=== PATIENT | male | born 1995 | race Caucasian/White ===

== ENCOUNTER 2019-10-11 20:14 | Emergency (ER) | payer OTHER ==
[~2019-10-11] VITALS: Ht 177.8 cm; Wt 57.6 kg
[2019-10-11 20:37] VITALS: BP 135/81
--- NOTE | 2019-10-11 21:00 | NUR ---
23 Y/O MALE PRESENTS TO ER WITH C/O LEFT EYE PAIN X 3 DAYS. 6/10 PAIN. PT STATES HE BELIEVES THIS IS DUE TO HAVING DIRTY CONTACT LENS WITH SLICE IN THE CENTER. PT ALSO STATED HE WENT TO [facility] @ 12 NOON TODAY, AND WAS GIVEN POLYMYXIN B SULFATE AND TRIMETHOPRIM GTTS WHICH HE INSTILLED IN EYE X 2HRS AGO. ALSO USED OTC HISTAMINE GTTS WELL. LEFT EYE IS NOTED TO HAVE SMALL WHITE PATCH IN IRIS AREA OF THE EYE, ALONG WITH WHITE DISCHARGE COMING FROM THE EYE. PT ALSO C/O HEADACHE, SENSITIVITY TO LIGHT, AND VISION CHANGES WITH DIMINISHED MIDLINE VISUAL ACUITY, AND BLURRY PERIPHERAL VISION. DENIES INJURY/TRAUMA TO FACE OR LEFT EYE. PT DENIES N/V/D, SOB, COUGH, FEVER, CHILLS. VSS, R/R EQUAL, AND UNLABORED. SIDE RAIL X1, BED IN LOW POSITION, WILL CONTINUE TO MONITOR. NKDA DENIES PMH
--- NOTE | 2019-10-11 21:09 | NUR ---
Dr. Schroeder examining patient.
[2019-10-11] MEDS ORDERED: TETRACAINE 1% 2 ML AMP INJ ONE (21:15)
[2019-10-11] MEDS ORDERED: FLUORESCEIN OPTH STRIP 1 MG ONE (21:15)
[2019-10-11] MEDS ORDERED: TETRACAINE HCL/PF 0.5% OPTH 4 ML BTL ONE (21:22)
[2019-10-11 21:45] VITALS: BP 135/81
--- NOTE | 2019-10-11 21:45 | NUR ---
Patient discharged with v/s stable. Written and verbal after care instructions given and explained. Patient alert, oriented and verbalized understanding of instructions. Ambulatory with steady gait. All questions addressed prior to discharge. ID band removed. Patient advised to follow up with PMD. Rx of CILOXAN OPTH GTTS given. Patient educated on indication of medication including possible reaction and side effects. Opportunity to ask questions provided and answered.
== END 2019-10-11 21:45 | disposition home or self-care (01) ==
LOC: MED 20:14
DX: S05.02XA Injury of conjunctiva and corneal abrasion without foreign body, left eye, initial encounter (principal); X58.XXXA Exposure to other specified factors, initial encounter; Y93.89 Activity, other specified; Y92.89 Other specified places as the place of occurrence of the external cause; Y99.8 Other external cause status
CPT/HCPCS: 99283; J3490

== ENCOUNTER 2019-10-12 09:10 | Emergency (ER) | payer OTHER ==
[~2019-10-12] VITALS: Ht 177.8 cm; Wt 59.0 kg
[2019-10-12 09:15] VITALS: BP 133/89
--- NOTE | 2019-10-12 09:19 | NUR ---
Patient being evaluated by DR SONI at bedside.
--- NOTE | 2019-10-12 09:21 | NUR ---
C/O LEFT EYE PAIN AFTER WEARING CONTACT LENSES X 3 DAYS. SEEN HERE LAST NIGHT FOR LEFT CORNEAL ABRASION.MED HX: DENIES. PATIENT STATES PAIN OF 3/10 AT THIS TIME.
[2019-10-12] MEDS ORDERED: TETRACAINE HCL/PF 0.5% OPTH 4 ML BTL OP ONE (09:25)
[2019-10-12] MEDS ORDERED: FLUORESCEIN OPTH STRIP 1 MG OP ONE (09:25)
--- NOTE | 2019-10-12 09:30 | NUR ---
[facility] WITHOUT CONTACT LENSES ; RIGHT EYE 20/100, LEFT NONE, BOTH EYES 20/100. Addendum: 10/12/19 at 0932 by [facility] ACCU CHECK 89
--- NOTE | 2019-10-12 09:58 | NUR ---
PT MEDS AT BEDSIDE DR SONI INFORMED AND AWARE.
--- NOTE | 2019-10-12 10:51 | NUR ---
DR SONI AT BEDSIDE EVALUATING PT.
--- NOTE | 2019-10-12 11:24 | NUR ---
SIGNED CONSENT FOR TRANSFER TO [facility] , [place] [facility] CALLED FOR TRANSPORT .
--- NOTE | 2019-10-12 11:41 | NUR ---
SPOKE TO LILIAN AT [facility] GAVE REPORT , PT V/S STABLE . ETA FOR TRANSPORT 1215.
--- NOTE | 2019-10-12 12:09 | NUR ---
GAVE REPORT TO JAVIER SOMMERS
[2019-10-12 12:10] VITALS: BP 120/81
--- NOTE | 2019-10-12 12:12 | NUR ---
Pt report given to [facility]. Transfer of care at this time 1213.
== END 2019-10-12 12:20 | disposition short-term general hospital (02) ==
LOC: MED 09:10
DX: S05.02XA Injury of conjunctiva and corneal abrasion without foreign body, left eye, initial encounter (principal); H16.002 Unspecified corneal ulcer, left eye; X58.XXXA Exposure to other specified factors, initial encounter; Y93.89 Activity, other specified; Y92.89 Other specified places as the place of occurrence of the external cause; Y99.8 Other external cause status
CPT/HCPCS: 90471; 90715; 99285

== ENCOUNTER 2023-04-04 20:40 | Emergency (ER) | payer OTHER ==
[~2023-04-04] VITALS: Ht 175.3 cm; Wt 65.8 kg
[2023-04-04 20:50] VITALS: BP 126/85; PULSE 83; RESP 17; TEMP 98.5; O2SAT 99
[2023-04-04] MEDS ORDERED: NAPR-54 PO (23:49)
== END 2023-04-04 23:55 | disposition home or self-care (01) ==
LOC: MED 20:40
DX: S20.213A Contusion of bilateral front wall of thorax, initial encounter (principal); Z79.899 Other long term (current) drug therapy; X58.XXXA Exposure to other specified factors, initial encounter; Y93.89 Activity, other specified; Y92.89 Other specified places as the place of occurrence of the external cause; Y99.8 Other external cause status
CPT/HCPCS: 71045; 93005; 99283